=== PATIENT | male | born 1960 | race Caucasian/White ===

== ENCOUNTER 2018-05-13 13:59 | Emergency (ER) | payer BC ==
[~2018-05-13] VITALS: Ht 170.2 cm; Wt 86.6 kg
[~2018-05-13 13:59] MED LIST: CIPRO500 MG PO; COLACE100 MG PO; FLAGYL500 MG PO; NORCO 5-325 TA1 EACH PO
[2018-05-13] MEDS ORDERED: VITAMIN B COMP1 EACH PO (14:12)
[2018-05-13] MEDS ORDERED: VITAMIN D2000 UNI1 PO (14:13)
[2018-05-13] MEDS ORDERED: ONDANSETRON ODT8 MG PO (15:20)
[2018-05-13] MEDS ORDERED: BACTRIM DS TAB1 EACH PO (15:20)
[2018-05-13] MEDS ORDERED: NORCO 10-325 T1 EACH PO (15:20)
== END 2018-05-13 15:30 | disposition home or self-care (01) ==
LOC: ED 13:59
DX: K57.32 Diverticulitis of large intestine without perforation or abscess without bleeding (principal); Z88.0 Allergy status to penicillin; Z79.899 Other long term (current) drug therapy
CPT/HCPCS: 74177; 81001; 96361; 96374; 96375; 99284; J1170; J2405; J7030; Q9967

== ENCOUNTER 2018-06-01 11:33 | Emergency (ER) | payer BC ==
[~2018-06-01] VITALS: Ht 170.2 cm; Wt 86.6 kg
[~2018-06-01 11:33] MED LIST changes: +BACTRIM DS TAB1 EACH PO; +NORCO 10-325 T1 EACH PO; +ONDANSETRON ODT8 MG PO; +VITAMIN B COMP1 EACH PO; +VITAMIN D2000 UNI1 PO
== END 2018-06-01 11:57 | disposition home or self-care (01) ==
LOC: ED 11:33
DX: M54.2 Cervicalgia (principal); M54.9 Dorsalgia, unspecified; M25.512 Pain in left shoulder

== ENCOUNTER 2018-06-01 14:19 | Emergency (ER) | payer BC ==
[~2018-06-01] VITALS: Ht 170.2 cm; Wt 81.7 kg
== END 2018-06-01 16:31 | disposition home or self-care (01) ==
LOC: ED 14:19
DX: M54.6 Pain in thoracic spine (principal); M54.2 Cervicalgia; I10 Essential (primary) hypertension; Z88.0 Allergy status to penicillin; Z79.899 Other long term (current) drug therapy
CPT/HCPCS: 99283

== ENCOUNTER 2024-10-25 08:11 | Emergency (ER) | payer BC ==
[~2024-10-25] VITALS: Ht 170.2 cm
[2024-10-25] MEDS ORDERED: METHOCARBAMOL500 MG PO (10:53)
[2024-10-25] MEDS ORDERED: HYDROmorphone HCL 1 MG/ML SYR IM ONE (11:00)
[2024-10-25] MEDS ORDERED: diazePAM 5 MG TAB PO ONE (11:00)
[2024-10-25] MEDS ORDERED: KETOROLAC TROMETHAMINE 30 MG/ML VIAL IM ONE (11:00)
[2024-10-25] MEDS ORDERED: AMLODIPINE BESYL5 MG PO (11:10)
[2024-10-25] MEDS ORDERED: LOSARTAN POTAS100 MG PO (11:10)
[2024-10-25] MEDS ORDERED: ACYCLOVIR400 MG PO (11:10)
[2024-10-25 11:39] VITALS: BP 114/83
== END 2024-10-25 11:39 | disposition home or self-care (01) ==
LOC: ED 08:11
DX: M62.830 Muscle spasm of back (principal); M62.838 Other muscle spasm; I10 Essential (primary) hypertension; Z88.0 Allergy status to penicillin; Z79.899 Other long term (current) drug therapy
CPT/HCPCS: 96372; 99283; J1171; J1885